=== PATIENT | female | born 1990 | race African-American/Black ===

== ENCOUNTER 2016-10-26 19:02 | Emergency (ER) | payer MEDICAID ==
[~2016-10-26] VITALS: Ht 172.7 cm; Wt 56.8 kg
[2016-10-26 19:09] VITALS: Ht 172.7 cm; Wt 56.8 kg
--- NOTE | 2016-10-26 20:18 | RADRPT ---
PROCEDURE: CT Head without. CLINICAL INDICATION: Seizure. TECHNIQUE: The study was performed utilizing a multi-slice, multidetector CT scanner. Direct spira l 1 mm axial sections were obtained through the head without the use of intravenous contrast materia l. 1 or more of the following dose reduction techniques were utilized: Automated exposure control, adjustment of the mA and/or kV according to patient's size, iterative reconstruction technique. [place] and sagittal reformations were obtained. The images were reviewed on a PACS workstation. RADIATION DOSE: CTDIvol: 44.4 mGyDLP: 720.2 mGy-cm COMPARISON: No prior studies are available for comparison. FINDINGS: There is no intracranial hemorrhage, extra-axial fluid collection, mass lesion, midline shift or hyd rocephalus. The ventricles, sulci and cisterns are within normal limits. The white matter is unrem arkable. The adams-white matter differentiation is preserved. The basal cisterns are patent. The m idline structures are intact. The orbits, calvarium and extracranial soft tissues are normal in emmanuel earance. The visualized paranasal sinuses, mastoid air cells and middle ear cavities are normally ae rated. IMPRESSION: 1. No acute intracranial abnormality. No intracranial hemorrhage, extra-axial fluid collection, ma ss lesion or hydrocephalous. RPTAT: HGAS .Zachary Nair MD, MD Date Time Electronically viewed and signed by .Zachary Nair MD, MD on 10/26/2016 20:18 .S/
[2016-10-26 20:25] LABS: ADD SCAN DIFF NO
[2016-10-26 20:27] LABS: BASOPHILS % 0.4 % (0.0-2.0); EOSINOPHILS # 0.2 10^3/ul (0.0-0.5); EOSINOPHILS % 3.1 % (0.0-7.0); HEMATOCRIT 33.4 % (37.0-47.0); LYMPHOCYTES # 1.8 10^3/ul (0.8-2.9); LYMPHOCYTES % 34.6 % (15.0-51.0); MEAN CORPUSCULAR HEMOGLOBIN 29.3 pg (29.0-33.0); MEAN CORPUSCULAR HGB CONC 32.9 g/dl (32.0-37.0); MEAN CORPUSCULAR VOLUME 88.8 fl (82.0-101.0); MEAN PLATELET VOLUME 10.3 fl (7.4-10.4); MONOCYTE # 0.6 10^3/ul (0.3-0.9); MONOCYTES % 10.8 % (0.0-11.0); NEUTROPHIL # 2.6 10^3/ul (1.6-7.5); NEUTROPHILS % 50.7 % (39.0-77.0); PLATELET COUNT 201 10^3/UL (140-415); RED BLOOD COUNT 3.76 10^6/ul (4.20-5.40); RED CELL DISTRIBUTION WIDTH 12.3 % (11.5-14.5); WHITE BLOOD COUNT 5.2 10^3/ul (4.8-10.8)
[2016-10-26 20:35] LABS: POTASSIUM 3.2 mmol/L (3.5-5.1)
[2016-10-26 20:37] LABS: CREATININE 1.03 mg/dl (0.44-1.00)
[2016-10-26 20:38] LABS: CALCIUM 8.7 mg/dl (8.4-10.2)
[2016-10-26] MEDS ORDERED: LORA-441 PO (20:39)
[2016-10-26] MEDS ORDERED: POTASSIUM CHLORIDE (SR) 20 MEQ TAB PO STA (21:10)
[2016-10-26 22:00] VITALS: BP 105/72; PULSE 75; RESP 21
[2016-10-26 23:01] LABS: URINE BLOOD (Dip) POC Negative (NEGATIVE)
--- NOTE | 2016-10-26 23:46 | ERD ---
ER Documentation Chief Complaint Date/Time DATE: 10/26/16 TIME: 23:32 Chief Complaint BIBA RA 100, seizure in the bus & ambulance,hx sz,c/o LEUNG HPI 26-year-old female with a history of seizures presenting by ambulance after having a 10 second seizure that was tonic-clonic on the bus per EMS. Patient was postictal after the seizure. She was given Versed prior to arrival. When I saw the patient, she was back to her normal mental status but sleepy. Patient states that she takes Ativan as needed 3 times a day. She does have a history of seizures for the past year but has not been on medications for this. Currently she complains of a mild left-sided headache, but has no other complaints of chest pain, shortness of breath, abdominal pain, dysuria, nausea or vomiting. She has no vision disturbance or focal weakness or numbness at this time. She does endorse a recent URI which improved. She denies any drug use or alcohol use. Currently she does not have a primary care doctor or neurologist. She has never taken medicine for seizures other than Ativan. ROS All systems reviewed and are negative except as per history of present illness. Medications Home Meds Reported Medications Lorazepam* (Ativan*) 0.5 Mg Tablet, 0.5 MG PO TID Y for PRN, #60 TAB 10/26/16 Allergies Allergies: Coded Allergies: No Known Allergy (Unverified , 10/26/16) PMhx/Soc Medical and Surgical Hx: pt denies Surgical Hx Hx Neurological Disorder: Yes (seizures) Hx Alcohol Use: No Hx Substance Use: No Hx Tobacco Use: No Smoking Status: Never smoker FmHx Family History: No diabetes Physical Exam Vitals Vital Signs Date Time Temp Pulse Resp B/P Pulse Ox O2 Delivery O2 Flow Rate FiO2 10/26/16 22:00 75 21 105/72 100 Room Air 10/26/16 21:08 75 22 101/66 100 10/26/16 19:09 98.0 95 18 118/53 97 10/26/16 19:07 94 21 101/59 97 Room Air Physical Exam Const: Somnolent but arousable, no apparent distress, nontoxic Head: Atraumatic Eyes: Normal Conjunctiva, PERRLA, EOMI ENT: Normal External Ears, Nose and Mouth. Neck: Full range of motion..~ No meningismus. Resp: Clear to auscultation bilaterally Cardio: Regular rate and rhythm, no murmurs Abd: Soft, non tender, non distended. Normal bowel sounds Skin: No petechiae or rashes Back: No midline or flank tenderness Ext: No cyanosis, or edema Neur: Awake and alert and oriented 3, cranial nerves intact, strength and sensations intact in all 4 extremities, normal gait Psych: Normal Mood and Affect Result Diagram: 10/26/16195610/26/161956 Results 24 hrs Laboratory Tests Test 10/26/16 19:57 10/26/16 23:01 White Blood Count 5.210^3/ul Red Blood Count 3.7610^6/ul Hemoglobin 11.0g/dl Hematocrit 33.4% Mean Corpuscular Volume 88.8fl Mean Corpuscular Hemoglobin 29.3pg Mean Corpuscular Hemoglobin Concent 32.9g/dl Red Cell Distribution Width 12.3% Platelet Count 81091^3/UL Mean Platelet Volume 10.3fl Neutrophils % 50.7% Lymphocytes % 34.6% Monocytes % 10.8% Eosinophils % 3.1% Basophils % 0.4% Nucleated Red Blood Cells % 0.0/100WBC Neutrophils # 2.610^3/ul Lymphocytes # 1.810^3/ul Monocytes # 0.610^3/ul Eosinophils # 0.210^3/ul Basophils # 0.010^3/ul Nucleated Red Blood Cells # 0.010^3/ul Sodium Level 139mmol/L Potassium Level 3.2mmol/L Chloride Level 105mmol/L Carbon Dioxide Level 25mmol/L Anion Gap 12 Blood Urea Nitrogen 9mg/dl Creatinine 1.03mg/dl Glucose Level 88mg/dl Bedside Glucose 91mg/dL Calcium Level 8.7mg/dl Serum HCG, Qualitative NEGATIVE Bedside Urine pH (LAB) 7.0 Bedside Urine Protein (LAB) Negative Bedside Urine Glucose (UA) Negative Bedside Urine Ketones (LAB) Negative Bedside Urine Blood Negative Bedside Urine Nitrite (LAB) Negative Bedside Urine Leukocyte Esterase (L Negative Current Medications Medications (Trade) Dose Ordered Sig/Patience Route PRN Reason Start Time Stop Time Status Last Admin Dose Admin Potassium Chloride (Klor-Con 20) 40 meq ONCE STAT PO 10/26/16 21:10 10/26/16 21:11 DC 10/26/16 21:29 Procedures/MDM EMERGENT LABS AND DIAGNOSTIC STUDIES: Lab Results above were reviewed and interpreted by me. CBC shows mild anemia BMP showed hypo-kalemia Urine dip normal negative 12-lead EKG was interpreted by Cliff Quiroga MD: Normal Sinus Rhythm with ventricular rate of 82 beats per minute Normal axis Normal intervals No acute ST or T wave changes suggestive of acute ischemia or STEMI. Radiology Results as interpreted by Radiology below were reviewed by Geovanny Quiroga MD: CT head shows no acute abnormalities Initial Nursing notes reviewed. Previous Medical Records requested via the Electronic Health Record. EMERGENCY DEPARTMENT COURSE / MEDICAL DECISION MAKING: Patient is presenting after breakthrough seizure. Her vitals are stable. She is neurologically intact. After period of observation, the patient did not have any recurrent seizures. There is no evidence of serious bacterial infection including meningitis or encephalitis. Labs did not show any significant abnormalities other than hypokalemia, for which she was given potassium replacement orally. I discussed with the patient the importance of following up with her primary care doctor. I gave her a list of clinics that she could call. I asked her to make an appointment on Friday for follow-up. She was advised to take her Ativan as prescribed for the time being, but she was advised to talk to her primary care doctor about seizure prophylactic medications. Patient feels comfortable with the plan and agrees to call a doctor on Friday, which is in 2 days. Patient will be discharged with return precautions. Departure Diagnosis: Primary Impression: Breakthrough seizure Condition: Stable Patient Instructions: Seizure, Recurrent [Adult] Referrals: COMMUNITY CLINICS YOU HAVE RECEIVED A MEDICAL SCREENING EXAM AND THE RESULTS INDICATE THAT YOU DO NOT HAVE A CONDITION THAT REQUIRES URGENT TREATMENT IN THE EMERGENCY DEPARTMENT. FURTHER EVALUATION AND TREATMENT OF YOUR CONDITION CAN WAIT UNTIL YOU ARE SEEN IN YOUR DOCTORS OFFICE WITHIN THE NEXT 1-2 DAYS. IT IS YOUR RESPONSIBILITY TO MAKE AN APPOINTMENT FOR FOLOW-UP CARE. IF YOU HAVE A PRIMARY DOCTOR --you should call your primary doctor and schedule an appointment IF YOU DO NOT HAVE A PRIMARY DOCTOR YOU CAN CALL OUR PHYSICIAN REFERRAL HOTLINE AT IF YOU CAN NOT AFFORD TO SEE A PHYSICIAN YOU CAN CHOSE FROM THE FOLLOWING [facility] [address] [facility] [address] [facility] [address] [facility] [address] [facility] [address] [facility]. [facility] [address] [facility]. [facility] YOU HAVE RECEIVED A MEDICAL SCREENING EXAM AND THE RESULTS INDICATE THAT YOU DO NOT HAVE A CONDITION THAT REQUIRES URGENT TREATMENT IN THE EMERGENCY DEPARTMENT. FURTHER EVALUATION AND TREATMENT OF YOUR CONDITION CAN WAIT UNTIL YOU ARE SEEN IN YOUR DOCTORS OFFICE WITHIN THE NEXT 1-2 DAYS. IT IS YOUR RESPONSIBILITY TO MAKE AN APPOINTMENT FOR FOLOW-UP CARE. IF YOU HAVE A PRIMARY DOCTOR --you should call your primary doctor and schedule and appointment IF YOU DO NOT HAVE A PRIMARY DOCTOR YOU CAN CALL OUR PHYSICIAN REFERRAL HOTLINE AT . IF YOU CAN NOT AFFORD TO SEE A PHYSICIAN YOU CAN CHOSE FROM THE FOLLOWING [facility]: [facility] [address] [place] [address] [facility] [address] [place] [address] [facility] [address] [place] [address] Additional Instructions: Return to the ER if you have any worsening symptoms. It is important you follow up with a Neurologist or at least a primary doctor to discuss possibly starting anti-seizure medication. WOLF QUIROGA MD Oct 26, 2016 23:42
[2016-10-27 00:42] LABS: ADD UMIC NO; URINE BILIRUBIN (Dip) NEGATIVE (NEGATIVE); URINE BLOOD (Dip) NEGATIVE (NEGATIVE); URINE COLOR LT. YELLOW (YELLOW); URINE GLUCOSE (Dip) NEGATIVE (NEGATIVE); URINE KETONES (Dip) NEGATIVE (NEGATIVE); URINE LEUKOCYTE ESTERASE (Dip) NEGATIVE (NEGATIVE); URINE NITRITE (Dip) NEGATIVE (NEGATIVE); URINE TOTAL PROTEIN (Dip) NEGATIVE (NEGATIVE); URINE UROBILINOGEN (Dip) 0.2 E.U./dL (0.1-1.0)
[2016-10-27 01:08] LABS: BARBITURATES Negative (NEGATIVE); BENZODIAZEPINES Positive (NEGATIVE)
[2016-10-27 01:09] LABS: CANNABINOIDS Negative (NEGATIVE); COCAINE Negative (NEGATIVE); OPIATES Negative (NEGATIVE)
== END 2016-10-26 23:30 | disposition home or self-care (01) ==
LOC: E/R 19:02
DX: R56.9 Unspecified convulsions (principal); R40.2132 Coma scale, eyes open, to sound, at arrival to emergency department; R40.2252 Coma scale, best verbal response, oriented, at arrival to emergency department; R40.2362 Coma scale, best motor response, obeys commands, at arrival to emergency department; E87.6 Hypokalemia
CPT/HCPCS: 36415; 70450; 80048; 80307; 81003; 82962; 84703; 85025; 93005; Z7502; Z7610